=== PATIENT | female | born 1960 | race Caucasian/White ===

== ENCOUNTER → 2016-08-25 | Outpatient (CLI) | payer BC ==
[~2016-08-25] MED LIST: HYDROCODON-ACE1 EACH PO; LISINOPRIL20 MG PO
--- NOTE | ~2016-08-25 | MR2 ---
[facility] A Service of [facility] RADIOLOGY TEXT RESULTS PATIENT: SHANIKA BELLO LOCATION: [facility] : 60 UNIT #: [id number] AGE: [address]: Dragan Carrizales MD SEX: F ORDER DR: [id number] [facility] [address] [place], [place] [address] [id number] O MR#: [id number] Acc #: [id number] NAME: SHANIKA BELLO. : 1960 SEX: F STUDY DATE/TIME: 08/25/2016 15:28 UNIT: [facility] ROOM: STUDY DESCRIPTION: MR Abdomen WWo Cont Attending Physician: Dragan Carrizales M.D. Referring Physician: Dragan Carrizales M.D. Ordering Physician: Dragan Carrizales M.D. Primary Care Physician: Dragan Carrizales M.D. MRI CENTER REPORT This report is preliminary unless electronic signature is present. EXAM MR abdomen INDICATION Liver mass. Abnormal CT scan. Restaging. Epigastric abdominal pain. TECHNIQUE Multiplanar MRI of the abdomen with and without contrast (18 mL MultiHance IV contrast). COMPARISON MR abdomen 05/07/2015 and 10/17/2014. CT abdomen 10/08/2014. FINDINGS There is diffuse background steatosis. The liver is borderline enlarged measuring 16.0-17.0 cm in length. No evidence of cirrhosis. The area of abnormal arterial perfusion in the periphery of the right hepatic lobe (segment 5) is less prominent on today's study. This measures less than 0.8 cm compared to 1.3 cm previously. There is no corresponding signal abnormalities on the precontrast T1-weighted sequences or T2-weighted sequences. The area normalizes on the more delayed phase contrast imaging. No suspicious renal mass or lesion is identified. The hepatic vasculature is patent. No intrahepatic or extrahepatic biliary dilatation. The gallbladder is not distended. The pancreas, spleen, adrenal glands, and kidneys are within normal limits. The bowel is not dilated. IMPRESSION 1. The vascular shunt in the periphery of the right hepatic lobe (segment 5) is less prominent on today's study than on the prior exams. 2. No new or suspicious hepatic lesions. [facility] A Service of [facility] RADIOLOGY TEXT RESULTS PATIENT: SHANIKA BELLO LOCATION: [facility] : 60 UNIT #: [id number] AGE: [address]: Dragan Carrizales MD SEX: F ORDER DR: 3. Hepatic steatosis. Dictated by... Mike Denney M.D. THIS IS AN ELECTRONICALLY VERIFIED REPORT Mike Denney M.D. at 08/28/2016 3:47 PM SHERRY/amos TD: 08/28/2016 12:47 JOB #: [id number] MRI CENTER REPORT Page 1 of 1 COPY
[2016-08-25 15:26] LABS: POC - CREATININE 0.92 mg/dL (0.44-1.03); POC - GFR >60.0 mL/min (>60)
== END | disposition home or self-care (01) ==
LOC: CMRI 14:34
PROVIDERS: Internal Medicine
DX: K76.9 Liver disease, unspecified (principal); K76.0 Fatty (change of) liver, not elsewhere classified
CPT/HCPCS: 74183; 82565; A9577